=== PATIENT | male | born 1960 | race Caucasian/White ===

== ENCOUNTER 2016-03-21 02:20 | Emergency (ER) | payer OTHER ==
[~2016-03-21] VITALS: Ht 172.7 cm; Wt 80.0 kg
[2016-03-21 02:27] VITALS: Ht 172.7 cm; Wt 80.0 kg
--- NOTE | 2016-03-21 02:30 | ERD ---
ER Documentation Chief Complaint Date/Time DATE: 03/21/16 TIME: 02:29 Chief Complaint found sitting on stranger's porch, +ETOH. has note w/ name pinned on neck HPI There is a 55-year-old male who was found sitting on a neighbor's porch. Patient admits to drinking. No evidence trauma. No other current complaints ROS All systems reviewed and are negative except as per history of present illness. Physical Exam Vitals Vital Signs Date Time Temp Pulse Resp B/P Pulse Ox O2 Delivery O2 Flow Rate FiO2 03/21/16 02:27 95.8 81 20 131/91 98 Physical Exam Const: [] Head: Atraumatic Eyes: Normal Conjunctiva ENT: Normal External Ears, Nose and Mouth. Neck: Full range of motion..~ No meningismus. Resp: Clear to auscultation bilaterally Cardio: Regular rate and rhythm, no murmurs Abd: Soft, non tender, non distended. Normal bowel sounds Skin: No petechiae or rashes Back: No midline or flank tenderness Ext: No cyanosis, or edema Neur: Awake and alert Psych: Normal Mood and Affect Procedures/MDM Medical decision making: Very pleasant patient who is always intoxicated. Has been allowed to sober. At this point is Stable for outpatient management. He will be discharged home Departure Diagnosis: Primary Impression: Alcoholic intoxication Complication of substance-induced condition: uncomplicated Qualified Code: F10.120 - Alcoholic intoxication, uncomplicated Condition: Stable Patient Instructions: Alcohol Intoxication TAMIE GLYNN Mar 21, 2016 02:30
[2016-03-21 04:16] VITALS: BP 110/83; PULSE 75; RESP 12
== END 2016-03-21 08:15 | disposition home or self-care (01) ==
LOC: E/R 02:20
DX: F10.120 Alcohol abuse with intoxication, uncomplicated (principal)
CPT/HCPCS: 99282